=== PATIENT | female | born 1985 | race Asian ===

== ENCOUNTER → 2019-10-12 10:48 | Outpatient (CLI) | payer BC, SELFPAY ==
--- NOTE | ~2019-10-12 | CT_ITS ---
EXAMINATION: CT soft tissue neck w con DATE: 10/12/2019 11:33 INDICATION: Neck mass. TECHNIQUE: Computed tomography (CT) of the neck was performed with 75 mL Omnipaque-350 intravenous co ntrast. Automated exposure control and iterative reconstruction technique were employed. The dose-shravan gth product was 331.94 mGy-cm. COMPARISON: CT neck 10/30/2015 FINDINGS: There are no pathologically enlarged lymph nodes. The cervical carotid arteries are normal. There are changes of rhinoplasty. The orbits are normal. The mastoid air cells are normal. There is moderate degenerative disc disease at C5-C6. IMPRESSION: 1. No abnormal neck mass or lymphadenopathy. Reviewed, dictated and finalized at location A. [employer]IER OPERATOR
[2019-10-12 11:16] LABS: Blood Urea Nitrogen 9 mg/dL (8-26); Estimated Glomerular Filt Rate > 60
== END ==
DX: R22.1 Localized swelling, mass and lump, neck (principal)
CPT/HCPCS: 70491; Q9967

== ENCOUNTER 2023-12-06 14:07 | Outpatient (CLI) | payer BC, SELFPAY ==
--- NOTE | ~2023-12-06 | XR_ITS ---
EXAMINATION: XR chest 2V Exam Date/Time: 12/06/2023 14:16 CDT HISTORY: COUGH X 10 DAYS Comparison: None. RESULT: Lines, tubes, and devices: Cholecystectomy clips. Lungs and pleura: Clear. Cardiomediastinal silhouette: Normal. Other: No acute osseous or upper abdominal finding. IMPRESSION: No acute cardiopulmonary process. Reviewed, dictated and finalized at location K.
== END 2023-12-06 14:08 | disposition home or self-care (01) ==
LOC: ANHIMG 14:11
DX: R05.9 Cough, unspecified (principal)
CPT/HCPCS: 71046